=== PATIENT | female | born 1960 | race Two or more races ===

== ENCOUNTER 2023-10-23 15:16 | Emergency (ER) | payer SELFPAY ==
[~2023-10-23] VITALS: Ht 160 cm; Wt 64.0 kg
[2023-10-23 15:22] VITALS: BP 106/66; PULSE 86; RESP 16; TEMP 98.2; O2SAT 100
[2023-10-23] MEDS ORDERED: AMLODIPINE (15:22)
[2023-10-23 16:21] LABS: BASOPHILS % 0.5 % (0.0-2.0); DIFFERENTIAL COMMENT 0; EOSINOPHILS % 1.7 % (0.0-5.0); HEMATOCRIT. 40.4 % (36.0-48.0); HEMOGLOBIN. 12.8 g/dL (12.0-16.0); LYMPHOCYTES % 17.5 % (20.0-50.0); MEAN CORPUSCULAR HEMOGLOBIN 25.3 pg (28.0-32.0); MEAN CORPUSCULAR HGB CONC 31.8 g/dL (31.0-37.0); MEAN CORPUSCULAR VOLUME 79.8 fL (81.0-99.0); MEAN PLATELET VOLUME 7.6 fl (7.4-10.4); MONOCYTES % 7.7 % (2.0-8.0); NEUTROPHILS % 72.6 % (40.0-76.0); PLATELET 331 x1000/uL (130-400); RED BLOOD CELL COUNT 5.06 mill/uL (4.2-5.4); RED CELL DISTRIBUTION WIDTH 16.2 % (11.6-14.6); WHITE BLOOD COUNT 9.6 x1000/uL (4.5-11.0)
[2023-10-23 16:31] LABS: CHLORIDE 110 mEq/L (98-107); POTASSIUM 3.8 mEq/L (3.5-5.1); SODIUM 143 mEq/L (136-145)
[2023-10-23 16:32] LABS: CALCIUM 9.4 mg/dL (8.7-10.4); CARBON DIOXIDE 28 mEq/L (21-32)
[2023-10-23 16:37] LABS: CREATININE 1.1 mg/dL (0.6-1.0); GLUCOSE 112 mg/dL (70-105); UREA NITROGEN BLOOD 17 mg/dL (9-23)
[2023-10-23 16:38] LABS: TROPONIN I HIGH SENSITIVITY 4 ng/L (3.0-34)
[2023-10-23 16:39] LABS: INR 0.9; PROTHROMBIN TIME 10.5 sec (9.6-11.0)
[2023-10-23] MEDS: SODIUM CHLORIDE 0.9% 1,000 ML IV ONE (16:53)
== END 2023-10-23 17:33 | disposition home or self-care (01) ==
LOC: ER 15:16
DX: R55 Syncope and collapse (principal); E78.00 Pure hypercholesterolemia, unspecified; I10 Essential (primary) hypertension
CPT/HCPCS: 99283; 80048; 85025; 85610; 84484; 36415; J7030